=== PATIENT | male | born 1995 | race Caucasian/White ===

== ENCOUNTER 2021-09-16 20:14 | Emergency (ER) | payer SELFPAY ==
--- NOTE | 2021-09-16 20:50 | NUR ---
PATIENT CALL TO TRIAGE NO ANSWER
--- NOTE | 2021-09-16 20:50 | NUR ---
PATIENT LEFT WITHOUT BEING SEEN BY DR. [place]. NO FURTHER CARE PROVIDED FOR PATIENT.
--- NOTE | 2021-09-16 20:55 | NUR ---
CALLED FOR SECOND TIME , NO RESPONSE
--- NOTE | 2021-09-16 21:00 | NUR ---
CALLED FOR THIRD TIME THROUGH HIS PHONE , NO REPLY
== END 2021-09-16 20:50 | disposition left against medical advice (07) ==
LOC: MED 20:14
DX: Z53.21 Procedure and treatment not carried out due to patient leaving prior to being seen by health care provider (principal)

== ENCOUNTER 2021-09-16 22:16 | Emergency (ER) | payer OTHER ==
[~2021-09-16] VITALS: Ht 185.4 cm; Wt 72.6 kg
[2021-09-16 22:25] VITALS: BP 141/80
--- NOTE | 2021-09-16 22:29 | NUR ---
TO LOBBY A/W BED AMBULATORY
--- NOTE | 2021-09-16 23:15 | NUR ---
SWAB FOR NOVEL SENT TO LAB
--- NOTE | 2021-09-17 | NUR ---
PT EVALUATED BY DR. JARVIS.
--- NOTE | 2021-09-17 00:10 | NUR ---
Ju thompson in EDM - 09/17/21 at 0015 by FANNY PT INFORMED ADMIT CLERK MAR THAT HE NO LONGER WISHED TO BE EVALUATED. PT LEFT FACILITY AT THIS TIME. PATIENT LEFT WITHOUT BEING SEEN BY DR. JARVIS. NO FURTHER CARE PROVIDED FOR PATIENT.
--- NOTE | 2021-09-17 00:10 | NUR ---
NOTIFIED BY IVETH MAR THAT PATIENT LEFT. PER DR. JARVIS PT CLEARED FOR DISCHARGE. PT LEFT WITHOUT DISCHARGE INSTRUCTIONS.
--- NOTE | 2021-09-17 00:10 | NUR ---
PT LEFT LOBBY
== END 2021-09-17 00:10 | disposition home or self-care (01) ==
LOC: MED 22:16
DX: R05.9 Cough, unspecified (principal); Z20.822 Contact with and (suspected) exposure to COVID-19
CPT/HCPCS: 99283; U0003